=== PATIENT | male | born 1965 | race Caucasian/White ===

== ENCOUNTER 2023-12-01 12:27 | Emergency (ER) | payer OTHER, SELFPAY ==
[2023-12-01 12:42] VITALS: BP 134/83; PULSE 82; RESP 16; TEMP 36.4; O2SAT 97; BMI 27.4
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
[2023-12-01 16:04] VITALS: BP 126/72; PULSE 80; RESP 18; TEMP 36.7; O2SAT 98
== END 2023-12-01 16:10 | disposition home or self-care (01) ==
PROVIDERS: Emergency Provider Student in an Organized Health Care Education/Training Program
DX: M54.2 Cervicalgia (principal); V89.2XXA Person injured in unspecified motor-vehicle accident, traffic, initial encounter
CPT/HCPCS: 99281